=== PATIENT | male | born 1965 | race Caucasian/White ===

== ENCOUNTER 2017-12-23 02:22 | Emergency (ER) | payer OTHER ==
[~2017-12-23 02:22] MED LIST: IBUPROFEN800 M1 PO
--- NOTE | 2017-12-23 02:49 | ED UPPER/LOWER EXTREMITY COMPL ---
History of Present Illness General Chief Complaint: Suture Removal/Wound Recheck Stated Complaint: SUTURE REMOVAL Source: patient Exam Limitations: no limitations Vital Signs & Intake/Output Vital Signs & Intake/Output . Allergies Coded Allergies: No Known Allergies (12/13/17) Reconcile Medications Ibuprofen 800 MG TABLET 1 TAB PO TID PRN pain Triage Note: PER PT HERE TO HAVE SUTURES REMOVED FROM RT THUMB SO I CAN GO BACK TO WORK UTD WITH [employer] Triage Nurses Notes Reviewed? yes Onset: Gradual Duration: week(s): Timing: recent history Severity: mild Pain/Injury Location: Right: 1st finger. Method of Injury: incised Modifying Factors: Improves With: rest. Associated Symptoms: laceration... "the sutures worked well" HPI: 52 yo gentleman presents for suture removal from right thumb, placed by this physician 1 week ago. He shares that he has been working fine with his right hand. No sign of infection. He is otherwise well. Past History Travel History Traveled to [place] past 21 day No Medical History Any Pertinent Medical History? see below for history Neurological: NONE EENT: NONE Cardiovascular: hypertension Respiratory: NONE Gastrointestinal: NONE Hepatic: NONE Renal: NONE Musculoskeletal: NONE Psychiatric: NONE Endocrine: NONE Blood Disorders: NONE Cancer(s): NONE ACCOUNT SERVICES SPECIALIST/Reproductive: NONE Tetanus Vaccine: 12/13/17 Surgical History Surgical History: non-contributory Psychosocial History What is your primary language Chinese Tobacco Use: Never used Family History Hx Contributory? No Review of Systems Review of Systems Constitutional: Reports: no symptoms. EENTM: Reports: no symptoms. Respiratory: Reports: no symptoms. Cardiovascular: Reports: no symptoms. Gastrointestinal/Abdominal: Reports: no symptoms. Genitourinary: Reports: no symptoms. Musculoskeletal: Reports: no symptoms. Skin: Reports: no symptoms. Neurological/Psychological: Reports: no symptoms. Hematologic/Endocrine: Reports: no symptoms. Immunological: Reports: no symptoms. All Other Systems: Reviewed and Negative Physical Exam Physical Exam General Appearance: well developed/nourished, no apparent distress Head: atraumatic Eyes: Bilateral: PERRL, EOMI. Ears, Nose, Throat: normal ENT inspection Neck: normal inspection, supple Cardiovascular/Respiratory: regular rate/rhythm Back: normal inspection Hand Right: 1st finger, laceration healed well, [id number], no sign of infection. Skin: intact, normal color, warm/dry Lymphatic: no anterior cervical idalmis Progress Differential Diagnosis: laceration vs other. Plan of Care: see below. Departure Departure Disposition: HOME OR SELF CARE Condition: Stable Clinical Impression Primary Impression: Laceration of left thumb Secondary Impressions: Visit for suture removal Referrals: Gabriel SEN,Dakota Hussein (PCP/Family) Departure Forms: Customer Survey General Discharge Information Comments sutures removed by RN.. discussed at length with patient.
== END 2017-12-23 02:58 ==
LOC: ERH 02:22
DX: Z48.02 Encounter for removal of sutures (principal)